=== PATIENT | male | born 1985 | race Caucasian/White ===

== ENCOUNTER 2021-02-24 07:32 | Emergency (ER) | payer MEDICAID ==
[2021-02-24] MEDS ORDERED: Sodium Chloride 0.9% 10 ML Syringe FLUSH PRN (07:40)
[2021-02-24] MEDS ORDERED: Sodium Chloride 0.9% 2.5 ML Syringe FLUSH PRN (07:40)
[2021-02-24] MEDS ORDERED: Morphine 4 MG/ML VIAL IVPUSH ONE (07:42)
[2021-02-24] MEDS ORDERED: Ondansetron 4 MG/2 ML SDV IVPUSH ONE (07:42)
--- NOTE | 2021-02-24 07:46 | EDM.PDOC ---
ED HPI GENERAL MEDICAL PROBLEM - General Chief Complaint: Abdominal Pain Stated Complaint: ABDOMINAL PAIN Time Seen by Provider: 02/24/21 07:33 - History of Present Illness INITIAL COMMENTS - FREE TEXT/NARRATIVE: Patient is a 35-year-old male he has a history of tongue cancer getting chemo and radiation in [place] who is presenting with sudden severe general abdominal pain. No nausea or vomiting but some diaphoresis no change in bowel habits. Patient was in his normal state of health until the symptoms started approximately 1 hour ago. Symptoms are constant severe and generalized throughout the abdomen. Pain now seems to be focused more in the groin and testicles on the left side. Patient also notes that he was just getting ready to clean his G-tube before the pain started but he had not been manipulating the G-tube when the pain started. Middle Abdomen Pain Score (Numeric/FACES): 10 - Related Data Allergies Allergy/AdvReac Type Severity Reaction Status Date / Time No Known Allergies Allergy Verified 02/24/21 08:00 Home Meds: Home Meds Ondansetron [Zofran] 8 mg PO Q6H 02/24/21 [History] dexAMETHasone [Dexamethasone] 4 mg PO 02/24/21 [History] ED ROS GENERAL - Review of Systems Review Of Systems: See Below Free Text/Narrative/Comment: General: No fever. Skin: No rash. ENT: No sore throat. Neck: No neck stiffness. Respiratory: No shortness of breath. Cardiac: No chest pain. Gastrointestinal: Per HPI Urinary: No dysuria. Musculoskeletal: No myalgias/arthralgias. Neurologic: No headache. ED EXAM, GENERAL - Physical Exam Exam: See Below Free Text/Narrative:: General Appearance: Diaphoretic and uncomfortable but nontoxic Skin: No rash HEENT: Normocephalic/atraumatic, sclera anicteric, mucous membranes moist Neck: Normal range of motion Chest and Lungs: Bilateral breath sounds, clear to auscultation Cardiovascular: Regular rate and rhythm Abdomen: Soft, there is generalized tenderness without rebound or guarding, G- tube in place in the epigastrium with gastric contents of the tube no drainage no bleeding no surrounding erythema : Bilaterally descended testicles the right testicle is nontender the left testicle is somewhat high riding and tender there is no palpable masses glans is normal Musculoskeletal: No edema or tenderness Neurologic: Awake, alert, no obvious deficits, moving all extremities Psychiatric: Appropriate, cooperative Course - Vital Signs Last Recorded V/S: Last Vital Signs Temp 97 F 02/24/21 07:40 Pulse 65 02/24/21 11:52 Resp 20 02/24/21 09:00 BP 103/46 L 02/24/21 11:52 Pulse Ox 94 L 02/24/21 09:00 - Orders/Labs/Meds Orders: Active Orders 24 hr Category Date Time Status Scrotal Duplex Ltd [US] Stat Exams 02/24/21 07:44 Taken CORONAVIRUS COVID-19 PETR [MOLEC] Stat Lab 02/24/21 11:45 Received Sodium Chloride 0.9% [Saline Flush] Med 02/24/21 07:40 Active 10 ml FLUSH ASDIRECTED PRN Sodium Chloride 0.9% [Saline Flush] Med 02/24/21 07:40 Active 2.5 ml FLUSH ASDIRECTED PRN Saline Lock Insert [OM.PC] Stat Oth 02/24/21 07:41 Ordered Medication Orders Sodium Chloride (Sodium Chloride 0.9% 10 Ml Syringe) 10 ml FLUSH ASDIRECTED PRN PRN Reason: Keep Vein Open Last Admin: 02/24/21 07:56 Dose: 10 ml Documented by: FAITH Sodium Chloride (Sodium Chloride 0.9% 2.5 Ml Syringe) 2.5 ml FLUSH ASDIRECTED PRN PRN Reason: Keep Vein Open Last Admin: 02/24/21 07:56 Dose: 2.5 ml Documented by: FAITH Labs: Laboratory Tests 02/24/21 02/24/21 02/24/21 Range/Units 07:45 07:45 10:07 WBC 11.03 H (4.0-11.0) K/uL RBC 5.28 (4.50-5.90) M/uL Hgb 14.1 (13.0-17.0) g/dL Hct 42.8 (38.0-50.0) % MCV 81.1 (80.0-98.0) fL MCH 26.7 L (27.0-32.0) pg MCHC 32.9 (31.0-37.0) g/dL RDW Std Deviation 44.0 (28.0-62.0) fl RDW Coeff of Margareth 16 H (11.0-15.0) % Plt Count 296 (150-400) K/uL MPV 10.00 (7.40-12.00) fL Neut % (Auto) 75.5 (48.0-80.0) % Lymph % (Auto) 11.0 L (16.0-40.0) % [place] % (Auto) 13.5 (0.0-15.0) % Eos % (Auto) 0.0 (0.0-7.0) % Baso % (Auto) 0.0 (0.0-1.5) % Neut # (Auto) 8.3 H (1.4-5.7) K/uL Lymph # (Auto) 1.2 (0.6-2.4) K/uL [place] # (Auto) 1.5 H (0.0-0.8) K/uL Eos # (Auto) 0.0 (0.0-0.7) K/uL Baso # (Auto) 0.0 (0.0-0.1) K/uL Nucleated RBC % 0.0 /100WBC Nucleated RBCs # 0 K/uL Sodium 140 (136-148) mmol/L Potassium 3.3 L (3.5-5.1) mmol/L Chloride 101 (98-107) mmol/L Carbon Dioxide 25.8 (21.0-32.0) mmol/L BUN 14 (7.0-18.0) mg/dL Creatinine 0.9 (0.8-1.3) mg/dL Est Cr Clr Drug Dosing TNP Estimated GFR (MDRD) > 60.0 ml/min Glucose 116 H (74-106) mg/dL Lactic Acid 0.7 (0.4-2.0) mmol/L Calcium 9.0 (8.5-10.1) mg/dL Total Bilirubin 0.7 (0.2-1.0) mg/dL AST 100 H (15-37) IU/L ALT 76 H (14-63) IU/L Alkaline Phosphatase 95 (46-116) U/L Total Protein 7.3 (6.4-8.2) g/dL Albumin 3.4 (3.4-5.0) g/dL Globulin 3.9 (2.6-4.0) g/dL Albumin/Globulin Ratio 0.9 (0.9-1.6) Lipase 76 (73-393) U/L Meds: Medications Generic Name Dose Route Start Last Admin Trade Name Freq PRN Reason Stop Dose Admin Sodium Chloride 10 ml 02/24/21 07:40 02/24/21 07:56 Sodium Chloride 0.9% 10 Ml Syringe FLUSH 10 ml ASDIRECTED PRN Administration Keep Vein Open Sodium Chloride 2.5 ml 02/24/21 07:40 02/24/21 07:56 Sodium Chloride 0.9% 2.5 Ml Syringe FLUSH 2.5 ml ASDIRECTED PRN Administration Keep Vein Open Discontinued Medications Generic Name Dose Route Start Last Admin Trade Name Freq PRN Reason Stop Dose Admin Piperacillin Sod/Tazobactam 100 mls @ 100 mls/hr 02/24/21 10:42 02/24/21 11:49 Sod 4.5 gm/ Sodium Chloride IV 02/24/21 11:41 100 mls/hr ONETIME ONE Administration Iopamidol 100 ml 02/24/21 10:14 02/24/21 10:15 Iopamidol 755 Mg/Ml 500 Ml Multipack Bottle IVPUSH 02/24/21 10:15 100 ml ONETIME ONE Administration Morphine Sulfate 4 mg 02/24/21 07:42 02/24/21 07:56 Morphine 4 Mg/Ml Vial IVPUSH 02/24/21 07:43 4 mg ONETIME ONE Administration Morphine Sulfate 4 mg 02/24/21 08:52 02/24/21 09:14 Morphine 4 Mg/Ml Vial IVPUSH 02/24/21 08:53 4 mg STAT STA Administration Ondansetron HCl 4 mg 02/24/21 07:42 02/24/21 07:56 Ondansetron 4 Mg/2 Ml Sdv IVPUSH 02/24/21 07:43 4 mg ONETIME ONE Administration Departure - Departure Time of Disposition: 12:49 Disposition: DC/Tfer to Acute Hospital 02 Condition: Fair Clinical Impression: Complaint associated with gastric tube - Discharge Information Referrals: Manuel Koenig MD [Primary Care Provider] - Forms: ED Department Discharge Sepsis Event Note (ED) - Focused Exam Vital Signs: Vital Signs Temp Pulse Resp BP Pulse Ox 02/24/21 11:52 65 103/46 L 02/24/21 11:00 74 99/54 L 02/24/21 10:00 75 110/53 L 02/24/21 09:00 63 20 123/80 94 L 02/24/21 07:40 97 F 80 22 H 140/74 97 - My Orders Last 24 Hours: My Active Orders 02/24/21 07:40 Sodium Chloride 0.9% [Saline Flush] 10 ml FLUSH ASDIRECTED PRN Sodium Chloride 0.9% [Saline Flush] 2.5 ml FLUSH ASDIRECTED PRN 02/24/21 07:41 Saline Lock Insert [OM.PC] Stat 02/24/21 07:44 Scrotal Duplex Ltd [US] Stat 02/24/21 11:45 CORONAVIRUS COVID-19 PETR [MOLEC] Stat - Assessment/Plan Last 24 Hours: My Active Orders 02/24/21 07:40 Sodium Chloride 0.9% [Saline Flush] 10 ml FLUSH ASDIRECTED PRN Sodium Chloride 0.9% [Saline Flush] 2.5 ml FLUSH ASDIRECTED PRN 02/24/21 07:41 Saline Lock Insert [OM.PC] Stat 02/24/21 07:44 Scrotal Duplex Ltd [US] Stat 02/24/21 11:45 CORONAVIRUS COVID-19 PETR [MOLEC] Stat Assessment:: 35-year-old male presenting with generalized abdominal pain as well pain and tenderness in the left testicle. Testicular torsion needs to be excluded is possible that the general abdominal pain is radiating from the left testicle. He does clearly have focal tenderness at that site. We do not currently have urology coverage here. Ultrasound is arriving and will do a testicular ultrasound to exclude torsion CBC, CMP, lipase and urinalysis ordered as well morphine and Zofran for pain. Once torsion is excluded and consider CT and other etiologies at that time. 0851: Patient appears to have bilateral blood flow on my review of the ultras ound images and so CT scan has been added. Renal colic is a consideration but the degree of abdominal tenderness would be atypical for this and so we will do the CT scan with contrast. Patient's pain is improved from 10 out of 10 to 8 out of 10 will give additional pain medication. 1043: CT shows displaced G-tube with gastric wall defect. General surgery paged, Zosyn and covid ordered. 1115: Pt seen by Dr. Nagel in the ED. The G-tube was placed by Dr. Tashi Sands in [facility] on 02/06/2021. She recommends discussion with them regarding transfer back to [facility] for continuity of care. 1120: I spoke to Dr. Sands's office. Dr. Mills is ebd special education teacher today. She is in the OR right now. The office will call and have her call me back. 1205: Pt discussed with Dr. Mills. She has bed capacity and accepts the patient for transfer. She requests the patient go through the ER. She called the ED to let them know. I'm awaiting a callback from their ER provider. 1245: Pt discussed with Dr. Shen at the [facility] ER and report provided. Pt is felt stable for transfer.
[2021-02-24 08:14] LABS: BLOOD UREA NITROGEN,BUN 14 mg/dL (7.0-18.0); CARBON DIOXIDE,CO2 25.8 mmol/L (21.0-32.0); CHLORIDE,CL 101 mmol/L (98-107); GLUCOSE RANDOM 116 mg/dL (74-106); LIPASE 76 U/L (73-393); POTASSIUM,K 3.3 mmol/L (3.5-5.1); SODIUM,NA 140 mmol/L (136-148)
--- NOTE | 2021-02-24 08:30 | US ---
Indication: Severe left hemiscrotal pain, rule out torsion Technique: Ultrasound of the scrotum and contents. Sonographic davis-scale images were obtained with spectral and color Doppler waveform and spectral waveform analysis of the testicles. Comparison: None available. Findings: The testicles are normal in size and echotexture. No masses. There are scant microcalcifications seen within the right testicle. Normal arterial and venous color Doppler blood flow and spectral waveforms are present in both testicles. Epididymis: There is demonstration of a small cyst in the left epididymal head. Otherwise, unremarkable bilaterally. Normal blood flow. Other: No sign of hydrocele. No sign of varicocele. Scrotal wall is normal. Impression: Unremarkable ultrasound of the scrotum and contents. No definite evidence of torsion or inflammatory changes. Incidental note is made of a punctate microcalcification within the right testicle which likely represents sequela of prior inflammatory change. Dictated by Nakul Murcia MD @ 02/24/2021 8:29:22 AM (Electronically Signed)
[2021-02-24] MEDS ORDERED: Morphine 4 MG/ML VIAL IVPUSH STA (08:52)
[2021-02-24] MEDS ORDERED: Iopamidol 755 MG/ML 500 ML Multipack Bottle IVPUSH ONE (10:14)
--- NOTE | 2021-02-24 10:33 | CT ---
INDICATION: Abdominal pain. TECHNIQUE: Volumetric helical scanning of the abdomen and pelvis was performed with 100 cc of Isovue 370 contrast material IV. Coronal and sagittal reconstructions were obtained. COMPARISON: Abdomen/pelvis CT of 02/06/2015. FINDINGS: A gastrostomy tube is demonstrated and has pulled out of the stomach. A 2.3 x 1.3 cm gastric wall defect is demonstrated at the site adjacent to the tube. A small amount of free intraperitoneal air and fluid is demonstrated. The bowel is otherwise unremarkable. The liver, bile ducts, spleen, adrenal glands, kidneys and pancreas are unremarkable. No lymphadenopathy is evident. The prostate is normal. The lung bases are clear except for minor atelectasis in the left base. The heart size is normal. IMPRESSION: Gastrostomy tube pulled out of the stomach with large gastric wall defect, pneumoperitoneum and small amount of free intraperitoneal fluid. Please note that all CT scans at this facility use dose modulation, iterative reconstruction, and/or weight-based dosing when appropriate to reduce radiation dose to as low as reasonably achievable. Dictated by Jefferson Graf MD @ 02/24/2021 10:31:36 AM (Electronically Signed)
[2021-02-24] MEDS ORDERED: Piperacillin/Tazobactam 4.5 GM in Sodium Chloride 0.9% 100 ML IV ONE (10:42)
[2021-02-24] MEDS ORDERED: Lactated Ringers 1,000 ML IV SCH (13:00)
[2021-02-24 13:29] VITALS: BP 111/77; PULSE 85
--- NOTE | 2021-02-28 12:12 | US ---
EXAM DATE: 02/24/21 PATIENT'S AGE: 35 Patient: BORIS HALL Facility: [facility] Site . Site : 1985 Study: US-Testicle -02/24/2021 8:16:54 AM Ordering Physician: Saqib Lucas Final Report: Indication: Severe left hemiscrotal pain, rule out torsion Technique: Ultrasound of the scrotum and contents. Sonographic davis-scale images were obtained with spectral and color Doppler waveform and spectral waveform analysis of the testicles. Comparison: None available. Findings: The testicles are normal in size and echotexture. No masses. There are scant microcalcifications seen within the right testicle. Normal arterial and venous color Doppler blood flow and spectral waveforms are present in both testicles. Epididymis: There is demonstration of a small cyst in the left epididymal head. Otherwise, unremarkable bilaterally. Normal blood flow. Other: No sign of hydrocele. No sign of varicocele. Scrotal wall is normal. Impression: Unremarkable ultrasound of the scrotum and contents. No definite evidence of torsion or inflammatory changes. Incidental note is made of a punctate microcalcification within the right testicle which likely represents sequela of prior inflammatory change. Dictated by Nakul Murcia MD @ 02/24/2021 8:29:22 AM Signed by: Nakul Murcia MD @02/24/2021 8:29:22 AM (Electronic Signature) Report Signed by Proxy. RODRÍGUEZ
== END 2021-02-24 13:30 ==
LOC: MW.ED 07:32
DX: K94.23 Gastrostomy malfunction (principal); N50.812 Left testicular pain; Z20.822 Contact with and (suspected) exposure to COVID-19
CPT/HCPCS: 36415; 74177; 76870; 80053; 83605; 83690; 85025; 87635; 93976; 96365; 96375; 96376; 99285; J2270; J2405; J2543; J7120; Q9967; U0002

== ENCOUNTER 2022-04-16 20:49 | Emergency (ER) | payer MEDICAID ==
[2022-04-16] MEDS ORDERED: Sodium Chloride 0.9% 2.5 ML Syringe FLUSH PRN (21:05)
[2022-04-16] MEDS ORDERED: Acetaminophen 500 MG Tab PO ONE (21:05)
[2022-04-16] MEDS ORDERED: Sodium Chloride 0.9% 10 ML Syringe FLUSH PRN (21:05)
[2022-04-16] MEDS ORDERED: Sodium Chloride 0.9% 1,000 ML IV ONE (21:05)
[2022-04-16] MEDS ORDERED: Ondansetron 4 MG/2 ML SDV IVPUSH ONE (21:05)
[2022-04-16] MEDS ORDERED: Pantoprazole 80 MG in Sodium Chloride 0.9% 10 ML IVPUSH ONE (21:07)
[2022-04-16 21:39] LABS: CARBON DIOXIDE,CO2 25.8 mmol/L (21.0-32.0); POTASSIUM,K 4.1 mmol/L (3.5-5.1)
[2022-04-16 21:53] LABS: CORONAVIRUS COVID-19 NAA NEGATIVE (NEGATIVE); INFLUENZA A NAA NEGATIVE (NEGATIVE); INFLUENZA B NAA NEGATIVE (NEGATIVE)
[2022-04-16] MEDS ORDERED: fentaNYL 50 MCG/ML SDV IVPUSH ONE (21:59)
[2022-04-16] MEDS ORDERED: Iopamidol 755 MG/ML 500 ML Multipack Bottle IVPUSH STA (22:36)
[2022-04-17 00:34] VITALS: BP 104/57; PULSE 83
== END 2022-04-17 00:34 | disposition home or self-care (01) ==
LOC: MW.ED 20:49
DX: K52.9 Noninfective gastroenteritis and colitis, unspecified (principal); K29.70 Gastritis, unspecified, without bleeding; K65.4 Sclerosing mesenteritis; Z79.899 Other long term (current) drug therapy; Z20.822 Contact with and (suspected) exposure to COVID-19
CPT/HCPCS: 0240U; 36415; 71045; 74177; 80053; 81001; 83605; 83690; 83735; 85025; 86850; 86900; 86901; 87040; 93005; 96361; 96374; 96375; 99284; A9270; C9113; J2405; J3010; J3490; J7030; Q9967

== ENCOUNTER 2022-07-02 03:15 | Emergency (ER) | payer MEDICAID ==
[2022-07-02] MEDS ORDERED: Sodium Chloride 0.9% 10 ML Syringe FLUSH PRN (03:33)
[2022-07-02] MEDS ORDERED: Sodium Chloride 0.9% 2.5 ML Syringe FLUSH PRN (03:33)
[2022-07-02] MEDS ORDERED: Lidocaine 1% with EPINEPHrine 1:100,000 20 ML MDV INJECT ONE (03:34)
[2022-07-02 03:55] LABS: BASOPHILS PERCENT AUTO 0.2 % (0.0-1.5); EOSINOPHILS ABSOLUTE AUTO 0.1 K/uL (0.0-0.7); EOSINOPHILS PERCENT AUTO 0.9 % (0.0-7.0); HEMATOCRIT 40.1 % (38.0-50.0); HEMOGLOBIN 13.9 g/dL (13.0-17.0); LYMPHOCYTES ABSOLUTE AUTO 0.9 K/uL (0.6-2.4); LYMPHOCYTES PERCENT AUTO 8.6 % (16.0-40.0); MEAN CORPUSCULAR HEMOGLOBIN 28.7 pg (27.0-32.0); MEAN CORPUSCULAR HGB CONC 34.7 g/dL (31.0-37.0); MEAN CORPUSCULAR VOLUME 82.9 fL (80.0-98.0); MONOCYTES PERCENT AUTO 9.6 % (0.0-15.0); NEUTROPHILS ABSOLUTE AUTO 8.5 K/uL (1.4-5.7); NEUTROPHILS PERCENT AUTO 80.7 % (48.0-80.0); NRBC ABSOLUTE 0 K/uL; PLATELET COUNT,PLT 249 K/uL (150-400); RED BLOOD CELL COUNT 4.84 M/uL (4.50-5.90); WHITE BLOOD CELL COUNT,WBC 10.57 K/uL (4.0-11.0)
[2022-07-02] MEDS ORDERED: VANCOmycin 2 GM/400 ML 400 ML IV ONE (04:00)
[2022-07-02 04:17] LABS: A/G RATIO 0.9 (0.9-1.6); ALBUMIN 3.4 g/dL (3.4-5.0); BILIRUBIN TOTAL 0.5 mg/dL (0.2-1.0); CALCIUM 8.5 mg/dL (8.5-10.1); CARBON DIOXIDE,CO2 24.9 mmol/L (21.0-32.0); CREATININE 0.7 mg/dL (0.8-1.3); EST CRCL DRUG DOSING (CG) 147.29 mL/min; PROTEIN TOTAL,TP 7.4 g/dL (6.4-8.2)
[2022-07-02 04:26] LABS: LACTIC ACID 0.7 mmol/L (0.4-2.0)
[2022-07-02 04:41] VITALS: BP 98/55; PULSE 68
[2022-07-02] MEDS ORDERED: Ketorolac 30 MG/ML SDV IVPUSH ONE (05:05)
[2022-07-02] MEDS ORDERED: VANCOmycin 1.25 GM/250 ML 250 ML IV SCH (15:00)
== END 2022-07-02 06:50 | disposition left against medical advice (07) ==
LOC: MW.ED 03:15
DX: L03.114 Cellulitis of left upper limb (principal); L02.414 Cutaneous abscess of left upper limb
CPT/HCPCS: 10061; 36415; 80053; 80202; 83605; 85025; 87040; 96365; 96366; 96375; 99283; J1885; J3370; J3490; 10060

== ENCOUNTER 2022-07-02 11:44 | Emergency (ER) | payer MEDICAID ==
[2022-07-02] MEDS ORDERED: Clindamycin Phosphate in D5W 600 MG in Premix Bag 1 BAG IV ONE ×2 (12:34)
[2022-07-02 12:52] LABS: CARBON DIOXIDE,CO2 25.2 mmol/L (21.0-32.0)
[2022-07-02 13:34] VITALS: BP 124/86; PULSE 70
== END 2022-07-02 13:34 | disposition home or self-care (01) ==
LOC: MW.ED 11:44
DX: L03.114 Cellulitis of left upper limb (principal); Z79.899 Other long term (current) drug therapy
CPT/HCPCS: 36415; 80053; 85025; 87070; 87205; 96365; 99283; J3490

== ENCOUNTER 2023-04-12 01:38 | Emergency (ER) | payer MEDICAID ==
[2023-04-12 02:47] VITALS: BP 164/87; PULSE 89
== END 2023-04-12 02:48 ==
LOC: MW.ED 01:38
DX: Z02.83 Encounter for blood-alcohol and blood-drug test (principal); Z79.899 Other long term (current) drug therapy
CPT/HCPCS: 36415; 80307; 99282; 99283

== ENCOUNTER 2023-10-29 18:29 | Emergency (ER) | payer MEDICAID ==
[2023-10-29] MEDS: Albuterol/Ipratropium 3.0-0.5 MG/3 ML Neb Soln NEB STA (19:12)
[2023-10-29] MEDS: Albuterol 0.083% 2.5 MG/3 ML Neb Soln NEB STA (19:12)
[2023-10-29] MEDS: Acetaminophen 500 MG Tab PO STA (19:12)
[2023-10-29] MEDS: Sodium Chloride 0.9% 1,000 ML IV STA ×2 (19:13→21:25)
[2023-10-29 19:21] LABS: BASOPHILS ABSOLUTE AUTO 0.05 K/uL (0.00-0.20); BASOPHILS PERCENT AUTO 0.5 % (0.0-1.0); HEMATOCRIT 38.9 % (42.0-52.0); HEMOGLOBIN 12.9 g/dL (14.0-18.0); IMMATURE GRAN ABSOLUTE AUTO 0.02 K/uL (0.00-0.05); IMMATURE GRAN PERCENT AUTO 0.2 % (0.0-0.4); LYMPHOCYTES ABSOLUTE AUTO 0.44 K/uL (1.00-4.80); LYMPHOCYTES PERCENT AUTO 4.4 % (24.0-44.0); MEAN CORPUSCULAR HEMOGLOBIN 26.8 pg (28.0-32.0); MEAN CORPUSCULAR HGB CONC 33.2 g/dL (32.0-36.0); MEAN CORPUSCULAR VOLUME 80.9 fL (83.0-99.0); MEAN PLATELET VOLUME 9.2 fL (9.4-12.4); MONOCYTES ABSOLUTE AUTO 0.66 K/uL (0.00-0.80); MONOCYTES PERCENT AUTO 6.6 % (0.0-8.0); NEUTROPHILS ABSOLUTE AUTO 8.86 K/uL (1.80-7.70); NEUTROPHILS PERCENT AUTO 88.3 % (41.0-71.0); PLATELET COUNT,PLT 278 K/uL (150-400); RED BLOOD CELL COUNT 4.81 M/uL (4.52-5.90); WHITE BLOOD CELL COUNT,WBC 10.03 K/uL (3.9-11.3)
[2023-10-29 19:40] LABS: A/G RATIO 0.9 (0.9-1.6); ALBUMIN 3.6 g/dL (3.4-5.0); BILIRUBIN TOTAL 0.6 mg/dL (0.2-1.0); CARBON DIOXIDE,CO2 26.6 mmol/L (21.0-32.0); CREATININE 0.8 mg/dL (0.8-1.3); EST CRCL DRUG DOSING (CG) 127.65 mL/min; POTASSIUM,K 3.7 mmol/L (3.5-5.1); PROTEIN TOTAL,TP 7.8 g/dL (6.4-8.2)
[2023-10-29 19:45] LABS: CORONAVIRUS COVID-19 NAA POSITIVE (NEGATIVE); INFLUENZA A NAA NEGATIVE (NEGATIVE); INFLUENZA B NAA NEGATIVE (NEGATIVE)
[2023-10-29] MEDS: Iopamidol 755 MG/ML 500 ML Multipack Bottle IVPUSH ONE (20:26)
[2023-10-29] MEDS: Ketorolac 30 MG/ML SDV IVPUSH STA (21:25)
[2023-10-29] MEDS: Piperacillin/Tazobactam 4.5 GM in Sodium Chloride 0.9% 100 ML IV STA (21:26)
[2023-10-29 22:16] LABS: LACTIC ACID 0.9 mmol/L (0.4-2.0)
[2023-10-29 23:21] LABS: APPEARANCE,URINE CLEAR; BILIRUBIN,URINE NEGATIVE (NEGATIVE); COLOR,URINE YELLOW; GLUCOSE,URINE NEGATIVE (NEGATIVE); KETONES,URINE NEGATIVE (NEGATIVE); LEUKOCYTE ESTERASE,URINE NEGATIVE (NEGATIVE); NITRITE,URINE NEGATIVE (NEGATIVE); OCCULT BLOOD,URINE TRACE-INTACT (NEGATIVE); PROTEIN,URINE NEGATIVE (NEGATIVE); UROBILINOGEN,URINE 0.2 EU/dL (<2.0)
[2023-10-29 23:27] LABS: BACTERIA,URINE RARE (NEGATIVE); EPITHELIAL CELLS,URINE NOT SEEN (NONE-FEW); MUCUS,URINE LIGHT (NONE-MOD); WBC,URINE 0-1 (0-5/HPF)
[2023-10-29] MEDS: Ketorolac 30 MG/ML SDV IVPUSH ONE (23:31)
[2023-10-29] MEDS: Lidocaine 1% with EPINEPHrine 1:200,000 30 ML SDV INJECT ONE (23:42)
[2023-10-30] MEDS: Morphine 4 MG/ML Syringe IVPUSH ONE ×3 (01:03→06:23)
[2023-10-30 01:26] LABS: BODY FLUID TYPE THOR
[2023-10-30 01:55] LABS: ALBUMIN,BODY FLUID 2.4 g/dL; AMYLASE,BODY FLUID 18 U/L; GLUCOSE,BODY FLUID 24 mg/dL
[2023-10-30 02:00] LABS: APPEARANCE,BODY FLUID CLOUDY; COLOR,BODY FLUID RED
[2023-10-30 02:01] LABS: RBC,BODY FLUID 1055000 /uL; WBC BODY FLUID 3164 /uL
[2023-10-30] MEDS: Acetaminophen 325 MG Tab PO ONE (04:00)
[2023-10-30 05:42] VITALS: BP 124/63; PULSE 95
== END 2023-10-30 07:05 ==
LOC: MW.ED 18:29
DX: U07.1 COVID-19 (principal); J91.8 Pleural effusion in other conditions classified elsewhere; F17.210 Nicotine dependence, cigarettes, uncomplicated; Z75.8 Other problems related to medical facilities and other health care
CPT/HCPCS: 0240U; 32551; 36415; 71045; 71046; 71275; 80053; 81001; 82150; 82945; 83605; 83690; 84157; 84484; 85025; 85379; 87040; 87070; 87075; 87205; 89050; 93005; 96361; 96365; 96375; 96376; 99285; A9270; J1885; J2270; J2543; J3490; J7030; Q9967; 93010; J7620-GY

== ENCOUNTER 2023-11-16 07:23 | Emergency (ER) | payer MEDICAID ==
[2023-11-16] MEDS ORDERED: Sodium Chloride 0.9% 2.5 ML Syringe FLUSH PRN (07:44)
[2023-11-16] MEDS ORDERED: Sodium Chloride 0.9% 10 ML Syringe FLUSH PRN (07:44)
[2023-11-16 08:01] LABS: BASOPHILS ABSOLUTE AUTO 0.04 K/uL (0.00-0.20); BASOPHILS PERCENT AUTO 0.4 % (0.0-1.0); EOSINOPHILS ABSOLUTE AUTO 0.19 K/uL (0.00-0.45); EOSINOPHILS PERCENT AUTO 1.8 % (0.0-6.0); HEMATOCRIT 25.2 % (42.0-52.0); HEMOGLOBIN 8.4 g/dL (14.0-18.0); IMMATURE GRAN ABSOLUTE AUTO 0.06 K/uL (0.00-0.05); IMMATURE GRAN PERCENT AUTO 0.6 % (0.0-0.4); LYMPHOCYTES ABSOLUTE AUTO 0.62 K/uL (1.00-4.80); LYMPHOCYTES PERCENT AUTO 5.9 % (24.0-44.0); MEAN CORPUSCULAR HEMOGLOBIN 26.1 pg (28.0-32.0); MEAN CORPUSCULAR HGB CONC 33.3 g/dL (32.0-36.0); MEAN CORPUSCULAR VOLUME 78.3 fL (83.0-99.0); MEAN PLATELET VOLUME 9.5 fL (9.4-12.4); MONOCYTES ABSOLUTE AUTO 1.16 K/uL (0.00-0.80); MONOCYTES PERCENT AUTO 11.1 % (0.0-8.0); NEUTROPHILS ABSOLUTE AUTO 8.39 K/uL (1.80-7.70); NEUTROPHILS PERCENT AUTO 80.2 % (41.0-71.0); PLATELET COUNT,PLT 412 K/uL (150-400); RED BLOOD CELL COUNT 3.22 M/uL (4.52-5.90); WHITE BLOOD CELL COUNT,WBC 10.46 K/uL (3.9-11.3)
[2023-11-16 08:15] LABS: A/G RATIO 0.5 (0.9-1.6); ALBUMIN 2.2 g/dL (3.4-5.0); CALCIUM 8.6 mg/dL (8.5-10.1); CARBON DIOXIDE,CO2 28.5 mmol/L (21.0-32.0); CREATININE 0.9 mg/dL (0.8-1.3); EST CRCL DRUG DOSING (CG) 112.38 mL/min; POTASSIUM,K 3.9 mmol/L (3.5-5.1); PROTEIN TOTAL,TP 6.4 g/dL (6.4-8.2)
[2023-11-16 08:25] LABS: INR 1.41 (0.86-1.11); PTT,PARTIAL THROMBOPLSTIN TIME 42.1 SEC (23.9-30.7)
[2023-11-16 09:20] LABS: LACTIC ACID 1.3 mmol/L (0.4-2.0)
[2023-11-16] MEDS: cefTAZidime Pentahydrate 2 GM in Sodium Chloride 0.9% 50 ML IV SCH (12:52)
[2023-11-16] MEDS: Morphine 4 MG/ML Syringe IVPUSH ONE (13:04)
[2023-11-16] MEDS: VANCOmycin 2 GM/400 ML 2 GM in Premix Bag 1 BAG IV ONE (13:05)
[2023-11-16 15:23] VITALS: BP 100/61; PULSE 96
== END 2023-11-16 15:22 | disposition home or self-care (01) ==
LOC: MW.ED 07:23
DX: J18.9 Pneumonia, unspecified organism (principal); J90 Pleural effusion, not elsewhere classified; C34.90 Malignant neoplasm of unspecified part of unspecified bronchus or lung; Z99.81 Dependence on supplemental oxygen; Z75.8 Other problems related to medical facilities and other health care
CPT/HCPCS: 36415; 71045; 71250; 80053; 83605; 84484; 85025; 85610; 85730; 86850; 86900; 86901; 87040; 93005; 96365; 96366; 96367; 96375; 99285; J0713; J2270; J3372; J3490; 93010

== ENCOUNTER 2023-12-22 20:48 | Emergency (ER) | payer MEDICAID ==
[2023-12-22 22:06] VITALS: BP 136/76; PULSE 74
== END 2023-12-22 22:06 | disposition home or self-care (01) ==
LOC: MW.ED 20:48
DX: S21.102A Unspecified open wound of left front wall of thorax without penetration into thoracic cavity, initial encounter (principal); Z98.890 Other specified postprocedural states; Z75.8 Other problems related to medical facilities and other health care; X58.XXXA Exposure to other specified factors, initial encounter
CPT/HCPCS: 99282

== ENCOUNTER 2024-02-28 16:54 | Emergency (ER) | payer MEDICAID ==
[2024-02-28 17:13] VITALS: BP 110/75; PULSE 111
== END 2024-02-28 18:00 | disposition home or self-care (01) ==
LOC: MW.ED 16:54
DX: Z48.813 Encounter for surgical aftercare following surgery on the respiratory system (principal); Z79.899 Other long term (current) drug therapy; Z75.8 Other problems related to medical facilities and other health care
CPT/HCPCS: 99283

== ENCOUNTER 2024-03-09 00:24 | Emergency (ER) | payer MEDICAID ==
[2024-03-09] MEDS: Magnesium Citrate Solution 296 ML Bottle PO ONE (01:11)
[2024-03-09 02:06] VITALS: BP 129/78; PULSE 98
== END 2024-03-09 01:58 | disposition home or self-care (01) ==
LOC: MW.ED 00:24
DX: K59.03 Drug induced constipation (principal); T40.605A Adverse effect of unspecified narcotics, initial encounter; Z79.01 Long term (current) use of anticoagulants; Z79.891 Long term (current) use of opiate analgesic; Z79.899 Other long term (current) drug therapy
CPT/HCPCS: 99283; A9270